=== PATIENT | female | born 1975 | race African-American/Black ===

== ENCOUNTER 2017-01-16 22:28 | Emergency (ER) | payer OTHER ==
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
[~2017-01-16 22:28] MED LIST: ATIVAN0.5 MG PO; DICLOFENAC PO; FLEXERIL PO; LORTAB 5/500 TA1 TA1 PO; METRONIDAZOLE PO; NAPROSYN375 MG PO; NAPROSYN500 MG PO; PHENERGAN25 MG PO; ULTRAM PO; VIBRAMYCIN100 M1 PO; VICODIN 5/500 T1 TAB PO
[2017-01-16] MEDS ORDERED: NEURONTIN100 MG PO (23:13)
[2017-01-16] MEDS ORDERED: NORVASC10 MG PO (23:13)
[2017-01-16] MEDS ORDERED: MORPHINE SULFAT15 MG PO (23:14)
[2017-01-16] MEDS ORDERED: CALCIUM 500 +1 EAC2 PO (23:14)
[2017-01-16] MEDS ORDERED: MULTIVITAMINS1 EAC2 PO (23:14)
[2017-01-16] MEDS ORDERED: OMEGA-3 + D SO1 EACH PO (23:15)
== END 2017-01-17 01:04 | disposition home or self-care (01) ==
LOC: SED 22:28
DX: S46.811A Strain of other muscles, fascia and tendons at shoulder and upper arm level, right arm, initial encounter (principal); I10 Essential (primary) hypertension; Z79.899 Other long term (current) drug therapy; V49.50XA Passenger injured in collision with unspecified motor vehicles in traffic accident, initial encounter
CPT/HCPCS: 71020; 72040; 99284